=== PATIENT | male | born 1980 | race Caucasian/White ===

== ENCOUNTER 2021-05-13 09:32 | Emergency (ER) | payer BC ==
[~2021-05-13] VITALS: Ht 187 cm; Wt 122.0 kg
[2021-05-13] MEDS ORDERED: NS IV 1000 ML 1,000 ML IV SCH (09:45)
[2021-05-13] MEDS ORDERED: KETOROLAC 30 MG/ML VIAL IVP ONE (09:45)
[2021-05-13] MEDS ORDERED: ONDANSETRON 4 MG/2 ML (SDV) Z0FRAN IVP ONE (09:45)
--- NOTE | 2021-05-13 09:51 | ED Headache ---
General Chief Complaint: Head/Cervical Problems Source: patient Exam Limitations: no limitations History of Present Illness Date Seen by Provider: May 13, 2021 Time Seen by Provider: 09:38 Initial Comments Patient is a 40-year-old male with a negative past medical history who presents to the emergency department with 30 minutes of the worst headache of his life. Patient states he was sitting down at a computer, went to stand up and had what he describes as the feeling of a bolt of lightening that started in his lower lumbar spine up his back and into the base of his head. He states his headache is throbbing, he rates it at a "8". He states it caused blurry vision and nausea. He states movements, bumps in the road on the way to the emergency department made his head hurt worse. He feels generally weak as well as with muscle weakness. He has never had a headache like this before and does not routinely get headaches. He has not taken any medications for the headache. Position does not make the headache any better. He denies chest pain, shortness of breath, fever. No speech difficulties. No numbness. No loss of bowel or bladder function. No family history of headache/aneurysm that he is aware of. Patient does vape/smoke. Drinks caffeine throughout the day. Does not take any medications for hypertension, diabetes etc. Last time he saw Was about 2 years ago. All other review of systems reviewed and negative except as stated. Timing/Duration: 1/2 hour Severity/Quality: severe, throbbing Location: global (worst at occiput) Prior Headaches/Recent Trauma: no recent headache/trauma Modifying Factors: worse with movement Associated Symptoms: nausea/vomiting, vision changes (blurry; no double vision) Allergies and Home Medications Allergies Uncoded Allergies: contrast dye (Allergy, Mild, Rash, 05/13/21) Patient Home Medication List Home Medication List Reviewed: Yes Review of Systems Review of Systems Constitutional: see HPI Eyes: Vision Changes (blurry) Ears, Nose, Mouth, Throat: no symptoms reported Respiratory: no symptoms reported Cardiovascular: no symptoms reported Gastrointestinal: nausea Genitourinary: no symptoms reported Musculoskeletal: back pain (gone now) Skin: no symptoms reported Psychiatric/Neurological: Headache, Weakness (arms more than legs) All Other Systems Reviewed Negative Unless Noted: Yes Past Pwmuotk-Jtegcx-Oosjrf Hx Seasonal Allergies Seasonal Allergies: No Past Medical History Gastroesophageal Reflux Physical Exam Vital Signs Vital Signs - First Documented 05/13/21 09:32 Temp 36.2 Pulse 103 Resp 24 B/P (MAP) 164/103 (123) Pulse Ox 97 O2 Delivery Room Air Capillary Refill : Height, Weight, BMI Height: 6'2" Weight: 270lbs. oz. 122.081176io; BMI Method:Stated General Appearance: WD/WN, no apparent distress HEENT: PERRL/EOMI, normal ENT inspection, pharynx normal Neck: non-tender, full range of motion, supple, normal inspection Cardiovascular: regular rate, rhythm Respiratory: lungs clear, normal breath sounds, no respiratory distress, no accessory muscle use Gastrointestinal: normal bowel sounds, non tender, soft Back: normal inspection, no vertebral tenderness Extremities: normal range of motion, non-tender, normal inspection, no pedal edema Psychiatric: alert, oriented x 3 Crainal Nerves: normal hearing, normal speech, PERRL Coordination/Gait: normal finger to nose, negative Romberg's sign Motor/Sensory: no sensory deficit, no pronator drift, weak motor strength RUE (4+), weak motor strength LUE (4+) Reflexes: 2+ Knee (R), 2+ Knee (L) Skin: normal color, warm/dry Procedures/Interventions Discussed Risk,Benefits: Yes Patient Consents: Yes Position: Sitting Sterile Technique: Yes Size of Disposal Tray Used: Adult x2 attempt at L3/4; x1 attempt L4/5; unsuccessful. Progress/Results/Core Measures Results/Orders Lab Results Laboratory Tests Test 05/13/21 09:45 05/13/21 09:55 Range/Units Glucometer 91 70-110 MG/DL White Blood Count 5.5 4.3-11.0 10^3/uL Red Blood Count 5.48 4.30-5.52 10^6/uL Hemoglobin 16.8 13.3-17.7 g/dL Hematocrit 50 40-54 % Mean Corpuscular Volume 91 80-99 fL Mean Corpuscular Hemoglobin 31 25-34 pg Mean Corpuscular Hemoglobin Concent 34 32-36 g/dL Red Cell Distribution Width 13.0 10.0-14.5 % Platelet Count 219 130-400 10^3/uL Mean Platelet Volume 9.4 9.0-12.2 fL Immature Granulocyte % (Auto) 0 % Neutrophils (%) (Auto) 47 42-75 % Lymphocytes (%) (Auto) 41 12-44 % Monocytes (%) (Auto) 9 0-12 % Eosinophils (%) (Auto) 2 0-10 % Basophils (%) (Auto) 1 0-10 % Neutrophils # (Auto) 2.6 1.8-7.8 10^3/uL Lymphocytes # (Auto) 2.3 1.0-4.0 10^3/uL Monocytes # (Auto) 0.5 0.0-1.0 10^3/uL Eosinophils # (Auto) 0.1 0.0-0.3 10^3/uL Basophils # (Auto) 0.0 0.0-0.1 10^3/uL Immature Granulocyte # (Auto) 0.0 0.0-0.1 10^3/uL Prothrombin Time 12.8 12.2-14.7 SEC INR Comment 0.9 0.8-1.4 Activated Partial Thromboplast Time 29 24-35 SEC Sodium Level 140 135-145 MMOL/L Potassium Level 4.2 3.6-5.0 MMOL/L Chloride Level 105 98-107 MMOL/L Carbon Dioxide Level 24 21-32 MMOL/L Anion Gap 11 5-14 MMOL/L Blood Urea Nitrogen 16 7-18 MG/DL Creatinine 0.78 0.60-1.30 MG/DL Estimat Glomerular Filtration Rate 115 BUN/Creatinine Ratio 21 Glucose Level 81 70-105 MG/DL Calcium Level 9.4 8.5-10.1 MG/DL My Orders Orders - DAV GROSS MD Ed Iv/Invasive Line Start (05/13/21 09:44) Cbc With Automated Diff (05/13/21 09:44) Basic Metabolic Panel (05/13/21 09:44) Protime With Inr (05/13/21 09:44) Partial Thromboplastin Time (05/13/21 09:44) Ct Head Wo (05/13/21 09:44) Ns Iv 1000 Ml (Sodium Chloride 0.9%) (05/13/21 09:45) Ketorolac Injection (Toradol Injection) (05/13/21 09:45) Ondansetron Injection (Zofran Injectio (05/13/21 09:45) Csf Culture (05/13/21 10:48) Csf Cell Count (05/13/21 10:48) Csf Glucose (05/13/21 10:48) Csf Total Protein (05/13/21 10:48) Diphenhydramine Injection (Benadryl Inje (05/13/21 11:30) Methylprednisolone Sod Succ (Solu-Medrol (05/13/21 11:30) Famotidine Injection (Pepcid Injection) (05/14/21 09:00) Ct Angio Head W (05/13/21 11:24) Iohexol Injection (Omnipaque 350 Mg/Ml 1 (05/13/21 11:30) Received Contrast (Hold Metformin- Contr (05/13/21 11:30) Sodium Chloride Flush (Catheter Flush Sy (05/13/21 11:30) Ns (Ivpb) (Sodium Chloride 0.9% Ivpb Bag (05/13/21 11:30) Medications Given in ED Current Medications Medications Dose Ordered Sig/Aruna Route Start Time Stop Time Status Last Admin Dose Admin Diphenhydramine HCl 25 mg ONCE ONCE IVP 05/13/21 11:30 05/13/21 11:31 DC 05/13/21 11:37 25 MG Iohexol 75 ml ONCE ONCE IV 05/13/21 11:30 05/13/21 11:36 DC 05/13/21 11:51 75 ML Ketorolac Tromethamine 15 mg ONCE ONCE IVP 05/13/21 09:45 05/13/21 09:47 DC 05/13/21 09:59 15 MG Methylprednisolone Sodium Succinate 125 mg ONCE ONCE IVP 05/13/21 11:30 05/13/21 11:31 DC 05/13/21 11:37 125 MG Ondansetron HCl 8 mg ONCE ONCE IVP 05/13/21 09:45 05/13/21 09:47 DC 05/13/21 09:58 8 MG Sodium Chloride 10 ml NEEDED PRN IV 05/13/21 11:30 05/13/21 11:51 10 ML Sodium Chloride 100 ml ONCE ONCE IV 05/13/21 11:30 05/13/21 11:36 DC 05/13/21 11:51 80 ML Vital Signs/I&O 05/13/21 09:32 Temp 36.2 Pulse 103 Resp 24 B/P (MAP) 164/103 (123) Pulse Ox 97 O2 Delivery Room Air Progress Progress Note #1: Time: 10:47 Progress Note Patient reevaluated, states his headache is down to a "3 or 4". He states his vision is improved and he feels like his strength in his upper extremities is improved. Patient's labs are reviewed and all within normal limits. His head CT is negative for any obvious blood. In light of the presentation with the associated symptoms however I feel like a lumbar puncture is still warranted. I discussed the procedure with the patient, risks and benefits and he elects to proceed. I advised him that I could give him some medications to help relax him and help further treat his headache and he declines at this time. Progress Note #2: Time: 11:31 Progress Note Attempted lumbar puncture to rule out subarachnoid hemorrhage, patient was placed in sitting position, curled forward over a table. Landmarks identified, patient prepped and draped in sterile fashion. Anesthetized with lidocaine, 2 attempts at L3-L4, 1 attempt at L4-L5 without success. Patient did vagal during the procedure, did not have loss of consciousness. Became very pale and sweaty. He elected to discontinue at this point which I agreed. Will send him over for CT angio which, is not gold standard however which should be sufficient in light of initial negative head CT to hopefully rule out subarachnoid. Patient stated at the end of lumbar puncture procedure actually that his headache had completely resolved this also is a good sign that the patient may not have subarachnoid hemorrhage secondary to aneurysm. Progress Note #3: Time: 12:[address] head angio negative for any acute vascular abnormality such as AVM or aneurysm or obvious leakage. Patient's vital signs continue to remain stable he continues to remain headache free. Counseled extensively on return precautions. He verbalized understanding. All questions are sought and answered. Diagnostic Imaging Diagonstic Imaging: CT Comments [facility], [place] NAME: GURPREET ONTIVEROS [facility] REC#: [id number] PT STATUS: REG ER : 1980 PHYSICIAN: DAV GROSS MD ADMIT DATE: 05/13/21/ER Draft Date of Exam:05/13/21 CT HEAD WO EXAMINATION: CT head without contrast. TECHNIQUE: Multiple contiguous axial images were obtained through the brain without the use of intravenous contrast. All CT scans use one or more of the following dose optimizing techniques: automated exposure control, MA and/or KvP adjustment based on patient size and exam type or iterative reconstruction. HISTORY: Worst headache of life. COMPARISON: None available. FINDINGS: No large acute territorial ischemia, mass, or hemorrhage. No midline shift or mass effect. The ventricles, cortical sulci, and basilar cisterns are patent and unremarkable. The orbits are normal. Paranasal sinuses are normal. Mastoid air cells are clear. No soft tissue abnormality is seen. No osseus lesions or fractures are seen. IMPRESSION: 1. No large acute territorial ischemia, mass, or hemorrhage. Dictated on workstation # [id number] Dict: 05/13/21 1016 Trans: 05/13/21 1018 [facility] [id number] Interpreted by: SARAH BUNCH DO Electronically signed by: [facility]: CT Comments NAME: GURPREET ONTIVEROS [facility] REC#: [id number] PT STATUS: REG ER : 1980 PHYSICIAN: DAV GROSS MD ADMIT DATE: 05/13/21/ER Draft Date of Exam:05/13/21 CT ANGIO HEAD W INDICATION: Worse headache of one's life, severe head pain. TECHNIQUE: Multiple axial images were obtained through the brain with IV contrast. Three-dimensional MIP images were reviewed. FINDINGS: The visualized distal internal carotid, vertebral, basilar, and [place] of [place] are intact. There is no aneurysm or AVM. There is no abnormal enhancement or mass. Visualized venous structures are grossly unremarkable. IMPRESSION: No acute or chronic vascular abnormality identified. Dictated on workstation # [id number] Dict: 05/13/21 1208 Trans: 05/13/21 1225 [id number] Interpreted by: LAUREN FRANK Electronically signed by: Jossie Impression Primary Impression: Sudden onset of severe headache Disposition: 01 HOME, SELF-CARE Condition: Improved Departure-Patient Inst. Decision time for Depature: 11:33 Referrals: NO,LOCAL PHYSICIAN (PCP/Family) Primary Care Physician Patient Instructions: Headache, Adult (DC), LOCAL PHYSICIAN LIST Add. Discharge Instructions: Drink plenty of fluids i.e. water, electrolyte replacement over the next 24 hours to stay well-hydrated. If your headache should recur, as severe as when you came in especially with vomiting, fever or any other concerning symptoms please come back to the emergency room for reevaluation. If the headache is mild you can take [id number] Excedrin, 2 tablets every 6 hours as needed. Please follow-up with your primary care physician. Work/School Note: Work Release Form Date Seen in the Emergency Department: May 13, 2021 Return to Work: May 14, 2021 DAV GROSS MD May 13, 2021 09:51
[2021-05-13 10:07] LABS: BASOPHILS % (AUTO) 1 % (0-10); EOSINOPHILS # (AUTO) 0.1 10^3/uL (0.0-0.3); EOSINOPHILS % (AUTO) 2 % (0-10); HEMATOCRIT 50 % (40-54); HEMOGLOBIN 16.8 g/dL (13.3-17.7); LYMPHOCYTES # (AUTO) 2.3 10^3/uL (1.0-4.0); LYMPHOCYTES % (AUTO) 41 % (12-44); MEAN CORPUSCULAR HEMOGLOBIN 31 pg (25-34); MEAN CORPUSCULAR HGB CONC 34 g/dL (32-36); MEAN CORPUSCULAR VOLUME 91 fL (80-99); MEAN PLATELET VOLUME 9.4 fL (9.0-12.2); MONOCYTES # (AUTO) 0.5 10^3/uL (0.0-1.0); MONOCYTES % (AUTO) 9 % (0-12); NEUTROPHILS # (AUTO) 2.6 10^3/uL (1.8-7.8); NEUTROPHILS % (AUTO) 47 % (42-75); PLATELET COUNT 219 10^3/uL (130-400); WHITE BLOOD COUNT 5.5 10^3/uL (4.3-11.0)
[2021-05-13 10:18] LABS: INR 0.9 (0.8-1.4); POTASSIUM 4.2 MMOL/L (3.6-5.0); PROTHROMBIN TIME PATIENT 12.8 SEC (12.2-14.7)
--- NOTE | 2021-05-13 10:18 | Diagnostic Imaging Report ---
EXAMINATION: CT head without contrast. TECHNIQUE: Multiple contiguous axial images were obtained through the brain without the use of intravenous contrast. All CT scans use one or more of the following dose optimizing techniques: automated exposure control, MA and/or KvP adjustment based on patient size and exam type or iterative reconstruction. HISTORY: Worst headache of life. COMPARISON: None available. FINDINGS: No large acute territorial ischemia, mass, or hemorrhage. No midline shift or mass effect. The ventricles, cortical sulci, and basilar cisterns are patent and unremarkable. The orbits are normal. Paranasal sinuses are normal. Mastoid air cells are clear. No soft tissue abnormality is seen. No osseus lesions or fractures are seen. IMPRESSION: 1. No large acute territorial ischemia, mass, or hemorrhage. Dictated by: Dictated on workstation # [id number]
[2021-05-13 10:19] LABS: CALCIUM 9.4 MG/DL (8.5-10.1)
[2021-05-13 10:24] LABS: CREATININE SERUM 0.78 MG/DL (0.60-1.30)
[2021-05-13] MEDS ORDERED: CATHETER FLUSH 10 ML SYR IV PRN (11:30)
[2021-05-13] MEDS ORDERED: HOLD METFORMIN - RECEIVED CONTRAST 20 ML VIAL IV SCH (11:30)
[2021-05-13] MEDS ORDERED: IOHEXOL 350 MG/ML 100 ML (OMNIPAQUE 350) VIAL IV ONE (11:30)
[2021-05-13] MEDS ORDERED: methylPREDNISolone 125 MG (Solu-MEDROL) VIAL IVP ONE (11:30)
[2021-05-13] MEDS ORDERED: NS 100 ML (IVPB) BAG IV ONE (11:30)
[2021-05-13] MEDS ORDERED: diphenhydrAMINE 50 MG/ML INJ (BENADRYL) IVP ONE (11:30)
--- NOTE | 2021-05-13 12:26 | Diagnostic Imaging Report ---
INDICATION: Worse headache of one's life, severe head pain. TECHNIQUE: Multiple axial images were obtained through the brain with IV contrast. Three-dimensional MIP images were reviewed. FINDINGS: The visualized distal internal carotid, vertebral, basilar, and [place] are intact. There is no aneurysm or AVM. There is no abnormal enhancement or mass. Visualized venous structures are grossly unremarkable. IMPRESSION: No acute or chronic vascular abnormality identified. Dictated by: Dictated on workstation # [id number]
[2021-05-13 13:01] VITALS: BP 123/87
[2021-05-14] MEDS ORDERED: FAMOTIDINE 20MG/2ML IV (PEPCID) IVP SCH (09:00)
== END 2021-05-13 13:07 | disposition home or self-care (01) ==
LOC: EDUNIT# 09:32 → ER 09:33
DX: R51.9 Headache, unspecified (principal)
CPT/HCPCS: 36415; 70450; 70496; 80048; 82947; 85025; 85610; 85730

== ENCOUNTER 2022-09-07 11:07 | Emergency (ER) | payer BC ==
[~2022-09-07] VITALS: Ht 187.9 cm; Wt 129.7 kg
[2022-09-07 11:29] LABS: BASOPHILS # (AUTO) 0.1 10^3/uL (0.0-0.1); BASOPHILS % (AUTO) 1 % (0-10); EOSINOPHILS # (AUTO) 0.1 10^3/uL (0.0-0.3); EOSINOPHILS % (AUTO) 2 % (0-10); HEMATOCRIT 50 % (40-54); HEMOGLOBIN 16.9 g/dL (13.3-17.7); LYMPHOCYTES # (AUTO) 2.3 10^3/uL (1.0-4.0); LYMPHOCYTES % (AUTO) 40 % (12-44); MEAN CORPUSCULAR HEMOGLOBIN 32 pg (25-34); MEAN CORPUSCULAR HGB CONC 34 g/dL (32-36); MEAN CORPUSCULAR VOLUME 96 fL (80-99); MEAN PLATELET VOLUME 10.4 fL (9.0-12.2); MONOCYTES # (AUTO) 0.5 10^3/uL (0.0-1.0); MONOCYTES % (AUTO) 8 % (0-12); NEUTROPHILS # (AUTO) 2.8 10^3/uL (1.8-7.8); NEUTROPHILS % (AUTO) 49 % (42-75); PLATELET COUNT 177 10^3/uL (130-400); WHITE BLOOD COUNT 5.8 10^3/uL (4.3-11.0)
[2022-09-07] MEDS ORDERED: ONDANSETRON 4 MG/2 ML (SDV) Z0FRAN IVP ONE (11:30)
[2022-09-07] MEDS ORDERED: ANTACID SUSP 30 ML UDC (MYLANTA) PO ONE (11:30)
[2022-09-07] MEDS ORDERED: ASPIRIN 81 MG CHEWABLE TABLET PO ONE (11:30)
[2022-09-07] MEDS ORDERED: LIDOCAINE 2% VISCOUS 15 ML UDC PO ONE (11:30)
--- NOTE | 2022-09-07 11:33 | ED Chest Pain ---
General Chief Complaint: Chest Pain Stated Complaint: CHEST PAINS | LEFT ARM PAIN Nursing Triage Note: PT ARRIVED POV WITH CC OF CP THAT STARTED 20-30 MINUTES WITH PAIN THAT RADIATES DOWN THE LEFT ARM. HX OF A HEART ATTACK. Source: patient Exam Limitations: no limitations History of Present Illness Date Seen by Provider: Sep 07, 2022 Time Seen by Provider: 11:12 Initial Comments This 42-year-old gentleman presents to the emergency room by private vehicle with complaints of chest pain that started about 30 minutes prior to arrival. It radiated down his left arm. He reports a vague history of MT which occurred at a hospital in [facility]. He reports no interventions were performed and he has had no work-up such as stress test or cardiac catheterization. The validity of this MRI report is uncertain. Patient denies any chest pain at the moment of interview. He described the pain as intermittent jolts of pain near the left lower costal margin and radiating up into the left arm. He felt a bit dizzy at the time. He has noted to be significantly hypertensive. He admits being prescribed medications for hypertension but he has not been taking them. His primary care provider is Merry davis. He has history of GERD. He was also noted to have some left upper quadrant tenderness on exam. Allergies and Home Medications Allergies Uncoded Allergies: contrast dye (Allergy, Mild, Rash, 05/13/21) Patient Home Medication List Home Medication List Reviewed: Yes Review of Systems Review of Systems Constitutional: no symptoms reported EENTM: No Symptoms Reported Respiratory: No Symptoms Reported Cardiovascular: See HPI Gastrointestinal: See HPI Genitourinary: No Symptoms Reported Musculoskeletal: no symptoms reported Skin: no symptoms reported Psychiatric/Neurological: No Symptoms Reported Endocrine: No Symptoms Reported Hematologic/Lymphatic: No Symptoms Reported Past Ehoszul-Awxcvt-Uetbra Hx Patient Social History Tobacco Use?: Yes Tobacco type used: Cigarettes Substance use?: No Alcohol Use?: Yes Alcohol Frequency: Couple times a week Seasonal Allergies Seasonal Allergies: No Past Medical History Surgeries: No Respiratory: No Cardiac: Yes Heart Attack (self reported as remote event in [place] with no formal workup or tx) Neurological: No Reproductive Disorders: No Genitourinary: No Gastrointestinal: Yes Gastroesophageal Reflux Musculoskeletal: No Endocrine: No HEENT: No Cancer: No Psychosocial: No Physical Exam Vital Signs Vital Signs - First Documented 09/07/22 09/07/22 11:08 15:32 Pulse 88 Resp 16 B/P (MAP) 178/108 (131) Pulse Ox 97 O2 Delivery Room Air Capillary Refill : Height, Weight, BMI Height: 6'2" Weight: 270lbs. oz. 122.760412ub; 36.00 BMI Method:Stated General Appearance: No Apparent Distress, WD/WN, Obese HEENT: PERRL/EOMI, Normal ENT Inspection Neck: Normal Inspection; No JVD Respiratory: Lungs Clear, Normal Breath Sounds, No Accessory Muscle Use, Other (Chest tender to palpation along the left lower anterior costal margin) Cardiovascular: Regular Rate, Rhythm, No Edema, No Murmur Gastrointestinal: Normal Bowel Sounds, Soft; No Distended; Tenderness (mild under the left anterior costal margin) Extremity: Normal Inspection, No Pedal Edema Neurologic/Psychiatric: Alert, Oriented x3, No Motor/Sensory Deficits, Normal Mood/Affect Skin: Normal Color, Warm/Dry Progress/Results/Core Measures Results/Orders Lab Results Laboratory Tests Test 09/07/22 11:14 09/07/22 14:20 Range/Units White Blood Count 5.8 4.3-11.0 10^3/uL Red Blood Count 5.24 4.30-5.52 10^6/uL Hemoglobin 16.9 13.3-17.7 g/dL Hematocrit 50 40-54 % Mean Corpuscular Volume 96 80-99 fL Mean Corpuscular Hemoglobin 32 25-34 pg Mean Corpuscular Hemoglobin Concent 34 32-36 g/dL Red Cell Distribution Width 13.4 10.0-14.5 % Platelet Count 177 130-400 10^3/uL Mean Platelet Volume 10.4 9.0-12.2 fL Immature Granulocyte % (Auto) 0 % Neutrophils (%) (Auto) 49 42-75 % Lymphocytes (%) (Auto) 40 12-44 % Monocytes (%) (Auto) 8 0-12 % Eosinophils (%) (Auto) 2 0-10 % Basophils (%) (Auto) 1 0-10 % Neutrophils # (Auto) 2.8 1.8-7.8 10^3/uL Lymphocytes # (Auto) 2.3 1.0-4.0 10^3/uL Monocytes # (Auto) 0.5 0.0-1.0 10^3/uL Eosinophils # (Auto) 0.1 0.0-0.3 10^3/uL Basophils # (Auto) 0.1 0.0-0.1 10^3/uL Immature Granulocyte # (Auto) 0.0 0.0-0.1 10^3/uL Prothrombin Time 12.7 12.2-14.7 SEC INR Comment 0.9 0.8-1.4 Activated Partial Thromboplast Time 29 24-35 SEC Sodium Level 140 135-145 MMOL/L Potassium Level 4.2 3.6-5.0 MMOL/L Chloride Level 108 H 98-107 MMOL/L Carbon Dioxide Level 24 21-32 MMOL/L Anion Gap 8 5-14 MMOL/L Blood Urea Nitrogen 13 7-18 MG/DL Creatinine 0.76 0.60-1.30 MG/DL Estimat Glomerular Filtration Rate 114 BUN/Creatinine Ratio 17 Glucose Level 99 70-105 MG/DL Calcium Level 9.5 8.5-10.1 MG/DL Corrected Calcium 9.4 8.5-10.1 MG/DL Magnesium Level 2.0 1.6-2.4 MG/DL Total Bilirubin 0.5 0.1-1.0 MG/DL Aspartate Amino Transf (AST/SGOT) 52 H 5-34 U/L Alanine Aminotransferase (ALT/SGPT) 88 H 0-55 U/L Alkaline Phosphatase 57 40-136 U/L Myoglobin 28.0 10.0-92.0 NG/ML Troponin I < 0.028 < 0.028 <0.028 NG/ML Total Protein 7.5 6.4-8.2 GM/DL Albumin 4.1 3.2-4.5 GM/DL Lipase 15 8-78 U/L My Orders Orders - ANTONIO MITCHELL MD Cbc With Automated Diff (09/07/22 11:22) Magnesium (09/07/22 11:22) Chest 1 View, Ap/Pa Only (09/07/22 11:22) Comprehensive Metabolic Panel (09/07/22 11:22) Myoglobin Serum (09/07/22 11:22) Protime With Inr (09/07/22 11:22) Partial Thromboplastin Time (09/07/22 11:22) O2 (09/07/22 11:22) Monitor-Rhythm Ecg Trace Only (09/07/22 11:22) Ed Iv/Invasive Line Start (09/07/22 11:22) Troponin I Coffey (09/07/22 11:22) Lipase (09/07/22 11:22) Ondansetron Injection (Zofran Injectio (09/07/22 11:30) Lidocaine 2% Viscous 15 Ml (Xylocaine Vi (09/07/22 11:30) Antacid Suspension (Mylanta Suspension (09/07/22 11:30) Aspirin Chewable Tablet (Aspirin Chewabl (09/07/22 11:30) Troponin I Juan (09/07/22 14:40) Medications Given in ED Vital Signs/I&O 09/07/22 09/07/22 11:08 15:32 Pulse 88 64 Resp 16 B/P (MAP) 178/108 (131) 127/86 Pulse Ox 97 99 O2 Delivery Room Air Blood Pressure Mean: 131 Progress Progress Note : Progress Note Patient did not experience any chest pain during his ER visit. Blood pressure was notably elevated on assessment but gradually improved throughout his ER stay without treatment. He received aspirin 324 mg. GI cocktail was administered but did not improve his left upper quadrant tenderness. Lipase was negative. CBC, CMP, magnesium, and troponin were all unremarkable by my interpretation. Transaminases were very slightly elevated but not in a clinically significant manner. Chest x-ray was read as unremarkable. EKG was nonischemic and demonstrated no significant abnormalities by my interpretation. Repeat troponin 4 hours after the event was negative. See discharge instructions for further discussion. Initial ECG Impression Date: Sep 07, 2022 Initial ECG Impression Time: 11:13 Initial ECG Rate: 86 Initial ECG Rhythm: Normal Sinus Comment SR with no ST elevation or depression. NM interval short at 104. No other abnormal intervals or axis deviation. Diagnostic Imaging Diagonstic Imaging: Xray Plain Films/CT/US/NM/MRI: chest Comments NAME: GURPREET ONTIVEROS [facility] REC#: [id number] PT STATUS: DEP ER : 1980 PHYSICIAN: ANTONIO MITCHELL MD ADMIT DATE: 09/07/22/ER Signed Date of Exam:09/07/22 CHEST 1 VIEW, AP/PA ONLY CLINICAL INDICATIONS: Patient with chest pain which started 20-30 minutes with pain which radiates down left arm. Patient has history of heart attack. EXAM: Portable chest x-ray upright view. COMPARISON: None. FINDINGS: Lungs/pleura: Lungs are clear. There is no pneumothorax. There is no pleural effusion. Mediastinum: Unremarkable. Pulmonary vasculature: Unremarkable. Heart: Unremarkable. Bones/extrathoracic soft tissue: Unremarkable. IMPRESSION: There is no radiographic evidence of acute cardiopulmonary process. Dictated by: Dictated on workstation # [id number] Dict: 09/07/22 1138 Trans: 09/07/22 1724 CVB [id number] Interpreted by: DEBBIE CORDERO MD Electronically signed by: DEBBIE CORDERO MD 09/07/22 172 Departure Impression Primary Impression: Chest pain Qualified Codes: R07.9 - Chest pain, unspecified Additional Impressions: Left upper quadrant abdominal pain Hypertension Qualified Codes: I10 - Essential (primary) hypertension Disposition: HOME, SELF-CARE Condition: Improved Departure-Patient Inst. Decision time for Depature: 15:20 Referrals: NO,LOCAL PHYSICIAN (PCP/Family) Primary Care Physician Patient Instructions: Abdominal Pain, Adult ED, Chest Pain, High Blood Pressure ED Add. Discharge Instructions: Follow-up with your primary care provider soon as possible. Coronary artery disease and other heart problems cannot be ruled out with 100% certainty in the emergency room. You should discuss further evaluation with your doctor. This may include referral to a type rolling machine operator, stress test, etc. Start your blood pressure medication as prescribed. Work toward quitting smoking as rapidly as possible. Seek assistance from your doctor if needed. Take aspirin 81 mg daily until otherwise directed. The cause of your left upper abdominal pain is uncertain. If this worsens or is accompanied by other symptoms such as vomiting or fever, return to the emergency room. Otherwise, discuss with your doctor at follow-up. Also return to the emergency room if you are having repeated episodes of chest pain. All discharge instructions reviewed with patient and/or family. Voiced understanding. ANTONIO MITCHELL MD Sep 07, 2022 11:33
[2022-09-07 11:34] LABS: ALBUMIN 4.1 GM/DL (3.2-4.5)
[2022-09-07 11:35] LABS: CHLORIDE 108 MMOL/L (98-107); POTASSIUM 4.2 MMOL/L (3.6-5.0); SODIUM 140 MMOL/L (135-145)
[2022-09-07 11:36] LABS: CALCIUM 9.5 MG/DL (8.5-10.1)
[2022-09-07 11:37] LABS: GLUCOSE 99 MG/DL (70-105); INR 0.9 (0.8-1.4); PROTHROMBIN TIME PATIENT 12.7 SEC (12.2-14.7); TOTAL PROTEIN 7.5 GM/DL (6.4-8.2)
[2022-09-07 11:38] LABS: CARBON DIOXIDE 24 MMOL/L (21-32)
[2022-09-07 11:40] LABS: ALKALINE PHOSPHATASE 57 U/L (40-136)
[2022-09-07 11:41] LABS: CREATININE SERUM 0.76 MG/DL (0.60-1.30); GFR ESTIMATED 114
[2022-09-07 11:42] LABS: BUN/CREATININE RATIO 17
[2022-09-07 11:44] LABS: ALANINE AMINOTRANSFERASE 88 U/L (0-55)
[2022-09-07 11:45] LABS: LIPASE 15 U/L (8-78)
--- NOTE | 2022-09-07 11:51 | Diagnostic Imaging Report ---
CLINICAL INDICATIONS: Patient with chest pain which started 20-30 minutes with pain which radiates down left arm. Patient has history of heart attack. EXAM: Portable chest x-ray upright view. COMPARISON: None. FINDINGS: Lungs/pleura: Lungs are clear. There is no pneumothorax. There is no pleural effusion. Mediastinum: Unremarkable. Pulmonary vasculature: Unremarkable. Heart: Unremarkable. Bones/extrathoracic soft tissue: Unremarkable. IMPRESSION: There is no radiographic evidence of acute cardiopulmonary process. Dictated by: Dictated on workstation # [id number]
[2022-09-07 12:10] LABS: BILIRUBIN,TOTAL 0.5 MG/DL (0.1-1.0)
[2022-09-07 15:32] VITALS: BP 127/86
== END 2022-09-07 15:32 | disposition home or self-care (01) ==
LOC: EDUNIT# 11:07 → ER 11:08
DX: R07.89 Other chest pain (principal); R10.12 Left upper quadrant pain; I10 Essential (primary) hypertension; F17.210 Nicotine dependence, cigarettes, uncomplicated; Z86.74 Personal history of sudden cardiac arrest
CPT/HCPCS: 36415; 71045; 80053; 83690; 83735; 83874; 84484; 85025; 85610; 85730; 93005; 93041

== ENCOUNTER → 2022-09-18 | Outpatient (CLI) | payer BC, SELFPAY ==
--- NOTE | 2022-09-18 10:31 | Diagnostic Imaging Report ---
Indication: Hypertension and tachycardia. CT coronary calcium study performed with noncontrast images of the heart followed by calculation of cardiac calcium score. Dose reduction protocol was used. There is no prior study for comparison. Visualized portions of the lung adkins are clear. The mediastinum shows no adenopathy. Visualized portions of aorta were unremarkable. There is no significant coronary calcification. Coronary calcium score was 0 in all territories. Incidental note is made of fatty infiltration of the liver Impression: CT coronary calcium score was 0, no significant calcification in any territory. Incidental note made of fatty infiltration of the liver. Dictated by: Dictated on workstation # [id number]
== END ==
LOC: RAD 08:02
PROVIDERS: ATTEND Nurse Practitioner Family
DX: K76.0 Fatty (change of) liver, not elsewhere classified (principal); I10 Essential (primary) hypertension; R00.0 Tachycardia, unspecified
CPT/HCPCS: 75571